=== PATIENT | female | born 1975 | race Hispanic/Latino ===

== ENCOUNTER 2016-11-07 07:42 | Day surgery (SDC) | payer BC ==
[2016-11-03 12:21] VITALS: BMI 35.5
[2016-11-07 08:27] LABS: BASO % 0.5 % (0.0-2.0); EOS # 0.2 K/uL (0.0-0.7); EOS % 2.6 % (0.0-4.0); LYMPH # 1.4 K/uL (1.0-4.3); MEAN CELL VOLUME 94.5 fl (81.0-99.0); MEAN CORPUSCULAR HEMOGLOBIN 31.8 pg (27.0-31.0); MEAN CORPUSCULAR HGB CONC 33.7 g/dL (33.0-37.0); MEAN PLATELET VOLUME 8.6 fl (7.2-11.7); MONO # 0.5 K/uL (0.0-0.8); MONO % 7.7 % (0.0-10.0); NEUT # 4.1 K/uL (1.8-7.0); NEUT % 67.2 % (50.0-75.0); NRBC % 0.1 % (0.0-0.0); RBC 4.09 Mil/uL (3.80-5.20); RED CELL DISTRIBUTION WIDTH 12.7 % (11.5-14.5); WHITE BLOOD COUNT 6.2 K/uL (4.8-10.8)
[2016-11-07] MEDS ORDERED: Propofol 10 mg/ml Inj (20 ML) ONE (09:00)
[2016-11-07] MEDS ORDERED: Midazolam 2 MG/2 ML VIAL ONE (09:00)
[2016-11-07] MEDS ORDERED: Oxytocin 10 Units/ml Inj ONE (09:06)
[2016-11-07] MEDS ORDERED: Lactated Ringer's 1,000 ML IV ONE (09:15)
[2016-11-07] MEDS ORDERED: Oxytocin 10 Units/ml Inj IM ONE ×2 (09:50)
[2016-11-07] MEDS ORDERED: HYDROmorphone 0.5 mg/0.5 ml ISec IVP PRN (10:08)
[2016-11-07 12:01] VITALS: RESP 18
[2016-11-07 17:05] VITALS: O2SAT 100
[2016-11-07 17:07] VITALS: BP 126/67; PULSE 63; TEMP 98
--- NOTE | 2016-11-09 19:23 | OP ---
PROCEDURE DATE: 11/07/2016 PREOPERATIVE DIAGNOSIS: Missed . POSTOPERATIVE DIAGNOSIS: Missed , pending pathology. SURGEON: Dr. Elliott. ANESTHESIA: Dr. Siddiqi, general anesthesia. PROCEDURE: Dilatation and curettage suction. Moderate amount of tissue was obtained on curetting. ESTIMATED BLOOD LOSS: About 100 mL DESCRIPTION OF PROCEDURE: With the patient in the dorsal lithotomy position under general anesthesia, the patient was prepped and draped in the usual sterile manner. A straight catheter was used to empty the bladder, after which the patient was examined under anesthesia. The uterus sounded to about 4.5 inches. The cervix was grasped anteriorly and dilated with graded dilators and suctioned curettage #8 was used, obtaining moderate amount of tissue. Hemostasis was obtained after this done. The patient was in satisfactory condition on her way to the recovery room. Omar Elliott MD cc:
== END 2016-11-07 17:05 | disposition home or self-care (01) ==
LOC: H.OPSURG 07:42
PROVIDERS: ATTEND Specialist
DX: O02.1 Missed abortion (principal); E03.9 Hypothyroidism, unspecified
CPT/HCPCS: 36415; 58120; 85025; 86850; 86900; 88300; 88305; J0694; J1170; J1885; J2250; J2590; J2704; J3010; J7030; J7120